=== PATIENT | female | born 1995 ===

== ENCOUNTER 2017-10-28 02:13 | Inpatient (IN) | payer SELFPAY ==
[2017-10-28] MEDS ORDERED: LORazepam 1 MG TAB ONE (03:02)
[2017-10-28] MEDS ORDERED: LORazepam 1 MG TAB PO ONE (03:02)
[2017-10-28 03:29] LABS: PLATELET COUNT 241 10^3/uL (150-400)
--- NOTE | 2017-10-28 06:11 | EDPHY ---
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 He took several cords and attach them to a pull-up bar and wrapped them around his neck. He stood on a chair and at the last minute did not kick the chair out from under him. 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 He returned home and realized she should do something so brought himself to the emergency department. He has been cutting himself more frequently on his left anterior thigh. Once 2 days ago and once a week ago. He said he is feeling suicidal due to his worsening depression. He has not been sleeping well. He has not been eating because of lack of money. He currently lives alone and does not have any health insurance though follows with a therapist approximately once per week. He does have a prior history of psychiatric hospitalization at 16 years of age due to psychosis possibly related to insomnia. He moved from [facility] in July to attend a cooking school, however he dropped out several weeks ago due to lack of money. 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 He is not on any psychiatric medications currently. REVIEW OF SYSTEMS Constitutional: No fever, no chills. Eyes: No discharge. ENT: No sore throat. Cardiovascular: No chest pain, no palpitations. Respiratory: No cough, no shortness of breath. Gastrointestinal: No abdominal pain, no vomiting. Genitourinary: No hematuria. Musculoskeletal: No back pain. Skin: No rashes. Neurological: No headache. 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 PHYSICAL General Appearance: Alert, no distress Eyes: Pupils equal and round no pallor or injection ENT, Mouth: Mucous membranes moist Respiratory: There are no retractions, lungs are clear to auscultation Cardiovascular: Regular rate and rhythm Gastrointestinal: Abdomen is soft and non-tender, no masses, bowel sounds normal Neurological: A&O, moves all extremities Skin: Warm and dry, no rashes Musculoskeletal: Neck is supple, abrasions throughout anterior neck Extremities: symmetrical, full range of motion, left anterior thigh with multiple superficial lacerations that are well-healed Psychiatric: Patient is oriented X 3, there is no agitation (Paulina Martinez) Constitutional: Initial Vital Signs Temperature (C) 36.7 C 10/28/17 02:17 Heart Rate 67 10/28/17 02:17 Respiratory Rate 18 10/28/17 02:17 Blood Pressure 148/90 H 10/28/17 02:17 O2 Sat (%) 97 10/28/17 02:17 O2 Delivery Mode Room Air Allergies/Adverse Reactions: No Known Allergies Allergy (Unverified 10/28/17 02:17) Medical Decision Making Differential Diagnosis: 22-year-old female to male transgender patient presents with suicide attempt by hanging, has sustained lacerations to neck without any shortness of breath or chest pain. Doubt any vascular injury at this time based on exam. He is also been cutting his thigh, these are superficial. In the emergency department, I placed the patient on an M1 hold for suicidal ideation. Labs were checked, toxicology was positive for marijuana only. The patient slept for much of my shift. He will be evaluated by the mental health team later this morning. At 7:00 a.m., the case is signed out to Dr. Beltrán pending the patient's evaluation. Differential diagnosis includes worsening depression with suicidal ideation, bipolar disorder with suicidal ideation, less likely polysubstance abuse were stressed response. (Paulina Martinez) Other Provider: 0800: Mental health manager commodities recommends inpatient admission. Searching for placement. (Stephen Beltrán) - Data Points Laboratory Results: Laboratory Results 10/28/17 02:40 10/28/17 02:40 10/28/17 10/28/17 10/28/17 02:40 02:40 02:40 WBC 7.27 10^3/uL 10^3/uL (3.80-9.50) RBC 5.13 10^6/uL 10^6/uL (4.18-5.33) Hgb 16.0 g/dL g/dL (12.6-16.3) Hct 45.7 % % (38.0-47.0) MCV 89.1 fL fL (81.5-99.8) MCH 31.2 pg pg (27.9-34.1) MCHC 35.0 g/dL g/dL (32.4-36.7) RDW 13.3 % % (11.5-15.2) Plt Count 241 10^3/uL 10^3/uL (150-400) MPV 9.4 fL fL (8.7-11.7) Neut % (Auto) 41.8 % % (39.3-74.2) Lymph % (Auto) 50.3 % H % (15.0-45.0) [place] % (Auto) 6.6 % % (4.5-13.0) Eos % (Auto) 0.7 % % (0.6-7.6) Baso % (Auto) 0.6 % % (0.3-1.7) Nucleat RBC Rel Count 0.0 % % (0.0-0.2) Absolute Neuts (auto) 3.04 10^3/uL 10^3/uL (1.70-6.50) Absolute Lymphs (auto) 3.66 10^3/uL H 10^3/uL (1.00-3.00) Absolute Monos (auto) 0.48 10^3/uL 10^3/uL (0.30-0.80) Absolute Eos (auto) 0.05 10^3/uL 10^3/uL (0.03-0.40) Absolute Basos (auto) 0.04 10^3/uL 10^3/uL (0.02-0.10) Absolute Nucleated RBC 0.00 10^3/uL 10^3/uL (0-0.01) Immature Gran % 0.0 % % (0.0-1.1) Immature Gran # 0.00 10^3/uL 10^3/uL (0.00-0.10) Sodium 140 mEq/L mEq/L (135-145) Potassium 3.8 mEq/L mEq/L (3.3-5.0) Chloride 107 mEq/L mEq/L (97-110) Carbon Dioxide 22 mEq/l mEq/l (22-31) Anion Gap 11 mEq/L mEq/L (8-16) BUN 17 mg/dL mg/dL (7-23) Creatinine 0.9 mg/dL mg/dL (0.6-1.0) Estimated GFR > 60 Glucose 76 mg/dL mg/dL (70-100) Calcium 9.7 mg/dL mg/dL (8.5-10.4) Urine Opiates Screen NEGATIVE (NEGATIVE) Urine Barbiturates NEGATIVE (NEGATIVE) Ur Phencyclidine Scrn NEGATIVE (NEGATIVE) Ur Amphetamine Screen NEGATIVE (NEGATIVE) U Benzodiazepines Scrn NEGATIVE (NEGATIVE) Urine Cocaine Screen NEGATIVE (NEGATIVE) U Marijuana (THC) Screen NON-NEGATIVE H (NEGATIVE) Ethyl Alcohol < 10 mg/dL mg/dL (0-10) Medications Given: Discontinued Medications Lorazepam (Ativan) 1 mg PO EDNOW ONE Stop: 10/28/17 03:03 Last Admin: 10/28/17 03:03 Dose: 1 mg Departure - Departure Clinical Impression: Suicide attempt by hanging, Deliberate self-cutting Condition: Fair Referrals: NONE *PRIMARY CARE P,. [Primary Care Provider] - As per Instructions
--- NOTE | 2017-10-28 08:10 | ASMTLCPROG ---
Notes Note: Notes: TLC made arrangements for pt.'s admission to [facility] admission. Pt was informed of admit, read rights and given belongings restrictions for unit. Pt will be transferred to 3 when bed is available after 11am on 10/28/17. Date Signed: 10/28/2017 08:09 AM Electronically Signed By:Kate Mann
--- NOTE | 2017-10-28 08:12 | ASMTTCLDSP ---
TLC Discharge Disposition Disposition: Answers: Admit Disposition Notes: Notes: In consultation with [facility] ED physician, Stephen Beltrán MD and on-call psychiatrist, Judy Wiley MD, both concurred that pt appears to meet 27-65 criteria requiring psychiatric hospitalization as pt appears to be at risk of harm to self due to a mental illness condition. Pt was given the [facility] prohibited belongings list while in the ED. Was patient given the Answers: Yes Inpatient Behavioral Health Prohibited Belongings List while in the ED? For inpatient Dr. Storey admission, the following psychiatrist agreed to accept patient for admission to Behavioral [facility]): Type of Hold: Answers: M1/72-hour Hold Date Signed: 10/28/2017 08:11 AM Electronically Signed By:Kate Mann
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
[2017-10-28] MEDS ORDERED: NICOTINE 21 MG/24 HR PATCH TD ONE (08:35)
[2017-10-28] MEDS ORDERED: NICOTINE POLACRILEX 2 MG GUM B ONE (08:37)
[2017-10-28] MEDS: NICOTINE POLACRILEX 2 MG GUM B PRN ×2 (08:40→22:41)
--- NOTE | 2017-10-28 10:37 | ASMTLCPROG ---
Notes Note: Notes: TLC communicated with ARELY Webber from [facility] inpt behavioral health unit. Pt well known on unit and recently d/c'd from [facility] on 10/25/17. While pt was on unit he was diagnosed with malingering Pt has a hx of making statements that if he was discharged he would walk in front of a bus. When pt was seen this am by TLC he again made statement of plans to walk in front of a bus. Pt. however also requested a bus pass. Pt was provided with mental health crisis center and encouraged to f/u with mental health treatment. Per hx pt has been offered multiple social media manager in the past and has not followed up with treatment. TLC consulted with ED Physician Dr. Beltrán. M1 hold vacated. TLC also consulted with ED case management regarding d/c concerns. Date Signed: 10/28/2017 10:37 AM Electronically Signed By:Kate Mann
[2017-10-28] MEDS ORDERED: MAG HYDROX/AL HYDROX/SIMETH 30 ML UDCUP PO PRN (12:39)
[2017-10-28] MEDS ORDERED: ACETAMINOPHEN 325 MG TAB PO PRN (12:39)
[2017-10-28] MEDS ORDERED: MAGNESIUM HYDROXIDE 30 ML UDCUP PO PRN (12:39)
[2017-10-28] MEDS ORDERED: LORazepam 0.5 MG TAB PO PRN (12:39)
[2017-10-28] MEDS ORDERED: OLANZapine DISINTEGR 10 MG TAB PO PRN (12:39)
[2017-10-28] MEDS ORDERED: IBUPROFEN 200 MG TAB PO PRN (12:42)
--- NOTE | 2017-10-28 13:53 | ASMTBHMTP ---
Master Treatment Plan Master Treatment Plan Answers: Depressed Mood with for: Suicidal Ideation Date: 10/28/2017 Diagnosis on Admission: Major Depressive Disorder, recurrent, severe 296.33 (F33.2) Expected length of stay: 5-7 Reason for admission: Notes: Per TLC evaluation: "Pt is a 22 year old transgender female to male who self presented to the [facility] ED on 10/28/17 at 02:13. Upon arrival to the ED pt reported he had tried to hang himself about 12 hours before presenting to the ED. Pt reported to MD he had taken several cords and attached them to a pull-up bar and wrapped them around his neck. He stood on a chair and at the last minute did not kick the chair out from under him. 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 Pt returned home after work and realized he should have brought himself to the ED. Per ED report pt has a hx of cutting himself frequently primarily on his left anterior thigh. Pt had reported he is feeling suicidal due to increased depression, hopelessness, financial problems and lack of ability to achieve his goals. Pt utox was positive for marijuana but no other substances. Pt reported he has not used marijuana for the last 7 days due to lack of financial resources. He has not taken any psychotropic medications for the past three years. Pt. is undergoing a sex transition and has been taking hormones since July of 2016". Patient's stated presenting problems: Notes: "I checked myself into the ED following an SA". Patient's goals for treatment: Notes: "What I can do to cope with everything so that I don't get to this place again". Patient's strengths: Notes: "I don't give in, if something doesn't make me happy I wouldn't force myself to continue doing it". Identify supports outside of hospital: Notes: No support system other than therapist. Discharge criteria: Notes: Suicdal ideation will resolve and patient will have a plan to safely manage recurrent SI. Initial disposition plan/considerations: Notes: Participate in unit activities and groups. Master Treatment Plan Required Signatures Psychiatrist signature: Answers: Psychiatrist: RN on-shift signature: Answers: RN: Patient signature: Answers: Patient: Date Signed: 10/28/2017 01:52 PM Electronically Signed By:Brenda Terrell
--- NOTE | 2017-10-28 14:07 | ASMTCMCOM ---
CM Note CM Note Notes: Ct. completed MTP. Ct. was pleasant and cooperative. He reported that he made an impulsive SA by wrapping a noose around his neck but after awhile when he did not pass out he took it off and brought self to ED. Ct. is not eligible for Medicaid because he is making too much money as he works two jobs. He said that he doesn't have enough money to enroll in other insurance plans. Discussed MHP with ct. but he was reluctant because he would like to continue with his pvt. therapist Nas Gardner who sees him pro bonita. Ct. reported that he has no support network. Date Signed: 10/28/2017 02:06 PM Electronically Signed By:Brenda Terrell
--- NOTE | 2017-10-28 14:37 | BCON ---
INTERNAL MEDICINE CONSULTATION DATE OF CONSULTATION: 10/28/2017 REFERRING PHYSICIAN: Jose Maria Storey MD REASON FOR REFERRAL: Medical clearance for inpatient behavioral health stay. HISTORY OF PRESENT ILLNESS: This patient came to the emergency department today. He had made a suicide attempt about 12 hours prior to arrival in the emergency department. He had tied cords around a pull-up bar and put them around his neck, but ultimately did not kick the chair out from under his feet, and then realized that he should get psychiatric help. He currently is without any acute complaints. PAST MEDICAL HISTORY: 1. Major depression with a history of cutting. 2. Possible Hua-Parkinson heart syndrome. 3. Female to male transgender. 4. History of seizures. PAST SURGICAL HISTORY: He has not had any surgeries. MEDICATIONS: 1. Melatonin 3 mg p.o. q.h.s. p.r.n. 2. Ibuprofen 200 mg p.o. daily p.r.n. 3. Testosterone, which he says he injects once a week. He reports he has missed a week. SOCIAL HISTORY: He lives alone. 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 He is a tobacco smoker and a marijuana user. FAMILY HISTORY: Noncontributory medically, though the chart notes reported history of alcoholism in his father and older brother. REVIEW OF SYSTEMS: He denies recent weight change. He is not in pain. He denies cough or dyspnea. He denies fevers or chills. He denies nausea, vomiting, constipation, or diarrhea. He denies dysuria or urinary frequency. He denies any neurologic symptoms. Otherwise, a 10-point review of systems is negative. PHYSICAL EXAM: VITAL SIGNS: Blood pressure is 166/106, heart rate is 66, respiratory rate is 14, oxygen saturation 95% on room air. Temperature is 36.9 degrees centigrade. His weight is 90.7 kg for a body mass index of 28.7. GENERAL: This is a well-nourished, well-developed, overweight-appearing phenotypic male sitting in a chair, dressed in street clothes. Cooperative and in no acute distress. HEENT: Extraocular movements are intact. Pupils are equal, round, reactive to light. Mucous membranes are moist. Dentition is in good condition. He has an uncrowded airway, Mallampati class 1. HEART: There is regular rate and rhythm with no murmurs, rubs, or gallops. LUNGS: Clear to auscultation bilaterally. ABDOMEN: Benign. NEUROLOGIC: He is alert and oriented x3. Cranial nerves 2 through 12 are grossly intact. There is no focal weakness, and sensation is intact to light touch. Gait is within normal limits. LABORATORY TESTS: Drawn in the emergency department: CBC was overall within normal limits. There was a slight elevation of absolute lymphocytes at 3.66 of no clinical significance. Serum chemistry revealed normal renal function and electrolytes. Toxicology screen in the serum was negative for ethyl alcohol, and the urine was non-negative for marijuana, but negative for any other substances of abuse. ASSESSMENT/RECOMMENDATIONS: 1. Mental health issues pending further evaluation and management per Psychiatry and the mental health team. 2. Tobacco dependence. Encouraged smoking cessation. 3. History of seizure. He says that 1 occurred in the context of rapid weight loss and increased exercise and the other occurred after getting a tattoo. He has no recollection of the seizures themselves, but was told that he was convulsing. He reports that he has had a head CT in the past, which he says was normal, and he has a grossly normal neurologic exam. Advise caution with psychiatric medications which might lower the seizure threshold. Otherwise, I do not have concerns about seizures, as it has been approximately 2 years since he had the last one. 4. Elevated blood pressure in the setting of testosterone use. Advised observing blood pressure and if it remains significantly elevated, consider initiating antihypertensive medications. 5. Transgender status. Would continue testosterone injections. I see no medical contraindications to this patient's continued stay in the inpatient behavioral health unit or to any psychiatric medications or procedures. Thank you very much for including me in the care of this patient and please do not hesitate to contact me or the hospitalist service should there be a need for further medical evaluation. /[id number]/MODL MTDD
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
[2017-10-28] MEDS: MELATONIN 3 MG TAB PO PRN (22:59)
[2017-10-29] MEDS: NICOTINE 21 MG/24 HR PATCH TD SCH (09:47)
--- NOTE | 2017-10-29 15:49 | ASMTBHDC ---
Notes Note: Notes: Pt. reports not currently being on any medications, but open to trying. Pt. stated he has a therapist "Nas" at the [facility] [place]". Pt. reports getting free counseling with this therapist over the phone. Pt. reports getting testosterone shots at [facility] in [place]. Pt. reports he missed a few shots in the past months. Pt. reports having no money and at times is unable to pay for food. Pt. agreed to sign up for Medicaid. Pt. reports working two jobs currently, one full-tie and one part-time, adding he may drop one job in the future. Pt. reports not knowing how to drive and needing to take the bus to his appointments. Pt. reports he is currently in the middle of a move from [place] to [place]. Staff report pt. sleeping 7 hours last night. Date Signed: 10/29/2017 03:48 PM Electronically Signed By:Varsha Alvarado
--- NOTE | 2017-10-29 15:57 | PDMN ---
Medical Necessity Medical necessity: Pt meets inpt criteria per MD order and [facility]-010, Other Psychiatric Disorders, Adult: Inpatient Care, 2 days. Pt admitted on M1 Hold due to being danger to self after self reported suicide attempt, pt reports feeling suicidal due to worsening depression. Pt requires inpt hospitalization for safety, crisis stabilization, and medication evaluation.
--- NOTE | 2017-10-29 17:32 | SOAPPROG ---
SOAP Progress Note Assessment/Plan: Assessment: 22 yo transgendered F-> M with h/o depression and self-harm. Patient admitted after planned hanging that patient decided not to complete. Plan: 10/29/17 17:27 1. MD and CC met with patient at length, and MD reviewed r/b/se's of multiple different antidepressant medications. Patient said he had a "really horrible" experience with Lexapro as a teenager and "didn't have any choice" b/c his MOC chose the medication for him. He declined to start any meds in hospital, but agreed to take drug information handouts with him and f/u with his PCP. 2. Patient stated he has no money to afford treatment and claims he "makes too much" income to qualify for Medicaid. CC helped patient complete application for Medicaid and gave him information for affordable clinics including [facility] and [facility]. 3. Patient denied any SI/HI. 4. Will likely d/c tomorrow. Patient given option to remain in hospital after his M1 expires on 10/31/17 early in AM, but he refused. Stated he needed to get back to work and "couldn't afford" another day of care. Subjective: Met with patient and d/w staff. MD and CC spoke at length with patient to answer his questions about treatment options, medication, outpatient services and primary care. He has been getting biweekly testosterone injections at [facility] in [place] and seeing a therapist at the clinic in [facility]. He says his appointments are usually "by phone" b/c he can't drive. He also receives his testosterone "in mail" and gives his own injections. He claims he was on his [facility]'s insurance until recently when [facility] quit his job. He hasn't been able to afford injections for over 2 months. He thinks that not taking his testosterone was what caused his mood to "go up and down." He also reports numerous stressors including working 2 jobs, not having enough money to pay bills, "almost getting evicted," and not being able to afford "to eat." He also reports not talking to his MOC in several months b/c his POC "kicked me out of the house" about a year ago which is why he moved to [place]. Patient says he doesn't feel depressed today and isn't having any thoughts of suicide. He denies any thoughts, plans or intent to hurt himself or anyone else. He says he's glad he didn't go through with plan to hang himself and says he has hopes and plans for the future. Objective: Vital Signs Temp Pulse Resp BP Pulse Ox 36.4 C 69 14 130/77 H 96 10/29/17 06:00 10/29/17 06:00 10/29/17 06:00 10/29/17 06:00 10/29/17 06:00 MSE: Affect: Cheerful, smiling and laughing at times Mood: "Good" TP: Linear , goal-directed TC: No paranoia, no delusions Insight/Judgment: Fair - Time Spent With Patient Time Spent With Patient: 15" - Pending Discharge Pending Discharge Within 24 Hours: Yes Pending Discharge Within 48 Hours: No Pending Discharge Date: 10/30/17 Pending Discharge Time: 11:00 ICD10 Worksheet Patient Problems: Problems Problem Status Onset Adjustment disorder with mixed disturbance of emotions and conduct Acute Cannabis use disorder, moderate, dependence Acute Deliberate self-cutting Acute [id number] transgender person Acute Suicide attempt by hanging Acute
[2017-10-29] MEDS: MELATONIN 3 MG TAB PO PRN (21:15)
[2017-10-30 07:05] VITALS: BP 136/89
[2017-10-30] MEDS: NICOTINE 21 MG/24 HR PATCH TD SCH (12:12)
--- NOTE | 2017-10-30 15:58 | BDS ---
REASON FOR ADMISSION: Patient is a 22-year-old transgendered man who presented to [facility] after an aborted suicide attempt on 10/27/2017. The patient states that he stood on a chair, took several cords and attached them to a pullup bar and wrapped them around his neck. At the last m inute, patient changed his mind and decided he did not want to hang himself. 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 He returned home and realized he should do something, so he brought himself to the em ergency department. Patient states that he has been cutting more frequently, the most recent time wa s on his thigh 2 days prior to admission. The patient states that he felt suicidal because of worseni ng depression, not sleeping well and not been eating due to lack of money. The patient lives alone. He does not have health insurance. 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 ADMITTING DIAGNOSES: 1. Adjustment disorder with mixed disturbance of emotions and conduct. 2. Cannabis use disorder, moderate, in a controlled environment. 3. Female to male transgender person. ADMITTING PHYSICAL EXAMINATION: Done by Dr. Bruce Casanova. There was no abnormal findings on phys ical examination. The patient was noted to have elevated blood pressure in the setting of testostero ne use. Patient was recommended to have his blood pressure monitored by his PCP and consider initiat ing antihypertensive medications if it remains significantly elevated. The patient reported that he has a history of seizures, one occurred in the context of rapid weight loss and increased exercise, a nd the other occurred after getting a tattoo. He reports that he had a CT in the past, which was nor mal. He has a grossly normal neurological examination. It has been more than 2 years since he has h ad his last seizure. Dr. Casanova advised caution with psychiatric medications that might lower seizur e threshold. LABS: On admission, white cell count was 7.27, hemoglobin 16.0, hematocrit 45.7, platelet count 241. Sodium 140, potassium 3.8, chloride 107, BUN 17, creatinine 0.9, glucose 76, calcium 9.7. Urine dr ug screen was positive for marijuana. It was negative for all other drugs of abuse. HOSPITAL COURSE: When the admitting nurse practitioner, Nas Guzman, interviewed the patient and di scussed the option of being on antidepressant medications, the patient declined to be on medications. When this MD spoke with the patient on 10/29/2017, he again stated that he had significant reservat ions about being on antidepressant medications. The patient said he had a "really horrible" experien ce with Lexapro as a teenager and "did not have any choice" because his mother chose the medication f or him. He stated that he did not want to be back on antidepressant medications because he was afrai d that similar adverse events might occur. MD attempted to allay the patient's fears by explaining i n detail the risks, benefits and side effects of multiple different antidepressant medications. We d iscussed options other than the SSRIs, including in the SNRIs, such as Effexor, as well as dopaminerg ic agents like bupropion. MD did caution the patient about the risk of seizures associated with all classes of antidepressants, the higher risk with bupropion, given the patient's prior history of seiz ure disorder. The patient stated that he did not want to start any psychiatric medications while he was in the hospital. He did agree though to take drug information handouts with him and to discuss h is options with his outpatient PCP. The patient has not established medical services here in [place] . MD strongly recommended that he get connected with outpatient providers and patient was given refe rral to the [facility] for primary care resources, as well as to [facility]. Patient had previously be en denied for Medicaid in the [facility], but physician primary care sports medicine assisted the patient in complet ing another application for Medicaid. The patient had previously been receiving his testosterone fro [facility] [place] and stated that he had been talking to a therapist, Nas benitez, by phone because he was not able to travel back and forth to [place] to make his appointments. The patient stated that he had very little money and could not afford treatment. and dean pantoja explained where the patient could access services for low to no cost including clinics like the [facility] and [facility], as well as through [facility]. While he was in the hospital. The patient denied feeling depressed. He denied feeling helpless, hope less, worthless, anxious or suicidal. He denied any thoughts, plans or intents to hurt himself or an yone else. The patient states that most of his depression is due to situational stressors including working 2 jobs, not having enough money to pay bills, "almost getting evicted", not being able to aff ord "to eat." He also states that he has not talked to his mother in several months because his pare nts "kicked me out of the house" about a year ago, which is why he moved to [place]. The patient st ates that he does not feel depressed since he has been in the hospital and is not having any thoughts of suicide. He said that he is glad he did not go through with a plan to hang himself and says that he has hopes and plans for the future. 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 CONDITION AT DISCHARGE: Patient was stable. His affect was euthymic. He was appropriate. He was v oicing no thoughts of suicide and he was not endorsing any symptoms of depression, armaan or psychosis . DISCHARGE MEDICATIONS: The patient was not given any medications at discharge because he had decline d to start any psychiatric medications while in the hospital. He was given drug information handouts about Effexor and about Prozac and Wellbutrin, and he was advised to follow up with his outpatient p howard including his PCP to discuss options for starting medications if he changes his mind in the future. DISCHARGE DIAGNOSES: 1. Adjustment disorder, depressed mood. 2. Major depressive disorder by history. 3. Cannabis use disorder, severe. 4. Psychosocial stressors include financial problems, lack of social support, estrangement from fami ly, complications from transgender identity. DISPOSITION: The patient was discharged from the hospital with referrals to the [facility], as well as the [facility]. He was also [facility], where he has received care in the past. The patient also completed a Medicaid applica tion, which was submitted by the physician primary care sports medicine, and he will be contacted directly with results. LEGAL COURSE: The patient was transferred to a voluntary status prior to his discharge. /[id number]/[id number]
[2017-10-31] MEDS ORDERED: TESTOSTERONE IM 100 MG/ML SYRINGE IM SCH (12:42)
== END 2017-10-30 14:10 | disposition home or self-care (01) | DRG 881 ==
LOC: EDSEX 02:13 → BBEH 12:25
PROVIDERS: ADMIT Psychiatry & Neurology Psychiatry; ATTEND Psychiatry & Neurology Psychiatry
DX: F43.21 Adjustment disorder with depressed mood (principal); F32.9 Major depressive disorder, single episode, unspecified; F12.90 Cannabis use, unspecified, uncomplicated; F17.200 Nicotine dependence, unspecified, uncomplicated; Z91.5 Personal history of self-harm
CPT/HCPCS: 80305; G0480; J1071